=== PATIENT | male | born 1965 | race Caucasian/White ===

== ENCOUNTER 2018-08-25 14:24 | Emergency (ER) | payer OTHER ==
[~2018-08-25] VITALS: Ht 175.3 cm; Wt 81.6 kg
--- OUTSIDE RECORDS SUMMARY | 2018-08-25 14:27 | XMS REPORT | Clinical Summary ---
Author Author [facility] Address Unknown Phone Unavailable Care Team Providers Care Model Home Sales Greeter Name Role Phone Montes Magnus PCP Allergies No Known Allergies Medications End Date Status Medication Sig Dispensed Refills Start Date Active dronedarone (MULTAQ) 400 Take 400 mg 0 mg tablet by mouth 2 (two) times daily with breakfast and dinner. Active lisinopril Take 10 mg by 0 (PRINIVIL,ZESTRIL) 10 MG mouth 2 (two) tablet times daily. Active simvastatin (ZOCOR) 20 MG Take 20 mg by 0 tablet mouth nightly. Active rivaroxaban (XARELTO) 20 Take by mouth 0 mg Tab tablet daily. Active nevirapine (VIRAMUNE) 200 Take 200 mg 0 mg tablet by mouth 2 (two) times daily. Active stavudine (ZERIT) 40 MG Take 40 mg by 0 capsule mouth every 12 (twelve) hours. Active lamiVUDine (EPIVIR) 150 Take 150 mg 0 MG tablet by mouth 2 (two) times daily. Active acyclovir (ZOVIRAX) 400 Take 400 mg 0 MG tablet by mouth 2 (two) times daily. Active multivitamin per tablet Take 1 tablet 0 by mouth daily. Active loratadine (CLARITIN) 10 Take 10 mg by 0 mg tablet mouth daily. Active Problems Problem Noted Date PAF (paroxysmal atrial fibrillation) 01/21/2016 Typical atrial flutter 01/21/2016 Social History Date Tobacco Use Types Packs/Day Years Used Never Smoker Alcohol Use Drinks/Week oz/Week Comments No Sex Assigned at Date Recorded Not on file Industry Job Start Date Occupation Not on file Not on file Not on file Travel End Travel History Travel Start No recent travel history available. Last Filed Vital Signs Not on file Plan of Treatment Not on file Results Not on fileafter 08/24/2017 Insurance Payer Benefit Subscriber ID Type Phone Address Plan / Group [employer] - [employer]ET[employer] xxxxxxxxxx HMO/POS SELECT US ACCESS Advance Directives For more information, please contact: [facility] [address] [place] [address] Date Inactivated Comments Code Status Date Activated 01/22/2016 1:14 PM Full Code 01/21/2016 6:07 PM This code status was determined by: Patient 01/21/2016 6:07 PM Full Code 01/21/2016 5:35 AM This code status was determined by: Patient
--- OUTSIDE RECORDS SUMMARY | 2018-08-25 14:28 | XMS REPORT | CCD ---
Author Author Auto Generated Organization [facility] Address Unknown Phone Unavailable Care Team Providers Care Primer Assembler Name Role Phone Magnus Montes CP Allergies, Adverse Reactions, Alerts Substance Reaction Status NKDA Active
--- OUTSIDE RECORDS SUMMARY | 2018-08-25 14:28 | XMS REPORT | Summary of Care ---
Author Author [facility] Organization [facility] Address Unknown Phone Unavailable Encounter DEVAN Soto(JONNY) [id number] Date(s): 05/09/15 - 05/09/15 [facility] [address] [facility] [address] [place] [id number] [phone] Discharge Disposition: Home Attending Physician: Magnus Montes MD Referring Physician: Magnus Montes MD Vital Signs Most recent to 1 oldest [Reference Range]: Height 172.3 cm (05/09/15 10:48 AM) Most recent to 1 oldest [Reference Range]: Temperature Oral 97.6 DegF [96.4-99.1 DegF] (05/09/15 10:48 AM) Most recent to 1 oldest [Reference Range]: Blood Pressure 118/88 mmHg [90-140/60-90 mmHg] (05/09/15 10:48 AM) Most recent to 1 oldest [Reference Range]: Respiratory Rate 18 BRMIN [14-20 BRMIN] (05/09/15 10:48 AM) Most recent to 1 oldest [Reference Range]: Peripheral Pulse 80 bpm Rate [60-100 bpm] (05/09/15 10:48 AM) Most recent to 1 oldest [Reference Range]: Weight 80.597 kg (05/09/15 10:48 AM) Most recent to 1 oldest [Reference Range]: Body Mass Index 27.15 m2 (05/09/15 10:48 AM) Problem List Condition Effective Dates Status Health Status Informant HIV (human Active immunodeficiency virus infection)(Confirmed ) No problem, feared Active complaint unfounded(Confirmed) Allergies, Adverse Reactions, Alerts Substance Reaction Severity Status NKDA Active Medications No Known Medications Results No data available for this section Immunizations No data available for this section Procedures No data available for this section Social History Social History Type Response Substance Abuse Use: None. IV drug use: No. Drug use interferes with work/home: No. Ready to change: No. Household substance abuse concerns: No. Cessation Education Provided: No. Exercise Exercise duration: 30. Exercise frequency: 1-2 times/week. Exercise type: Running. Alcohol Current, Type Beer, Wine. Frequency: 3-5 times per week. Previous treatment: None. Alcohol use interferes with work or home: No. Drinks more than intended: No. Others hurt by drinking: No. Ready to change: No. Household alcohol concerns: No. Smoking Status Never smoker; Exposure to Tobacco Smoke None; Exposed at work; Lives with someone who smokes; Exposure to Tobacco Smoke Unable to obtain; Cigarette Smoking Last 365 Days No; Reg Smoking Cessation Counseling No Assessment and Plan No data available for this section
--- OUTSIDE RECORDS SUMMARY | 2018-08-25 14:28 | XMS REPORT | Summary of Care ---
Author Organization Unknown Address Unknown Phone Unavailable Encounter DEVAN Soto(JONNY) [id number] Date(s): 10/21/14 - 10/22/14 [facility] [address] [facility] [address] [phone] Vital Signs No data available for this section Problem List No data available for this section Allergies, Adverse Reactions, Alerts Substance Reaction Severity Status NKDA Active Medications Azithromycin 5 Day Dose Pack 250 mg oral tablet Take as directed, PO, Daily, TAKE 2 TABLETS ON DAY 1, THEN 1 TABLET DAILY, # 1 P ack, 0 Refill(s), Pharmacy: [facility] [id number] Special Instructions: TAKE 2 TABLETS ON DAY 1, THEN 1 TABLET DAILY Start Date: 10/21/14 Stop Date: 10/25/14 Status: Ordered ZyrTEC 10 mg oral tablet 10 mg=1 tab, PO, Daily, # 30 tab, 0 Refill(s), Pharmacy: [id number] Start Date: 10/21/14 Status: Ordered Results No data available for this section Immunizations No data available for this section Procedures No data available for this section Social History Social History Type Response Alcohol Current, Type Beer, Wine. Frequency: 3-5 [...]
--- OUTSIDE RECORDS SUMMARY | 2018-08-25 14:28 | XMS REPORT | Summary of Care ---
Author Organization Unknown Address Unknown Phone Unavailable Encounter Dates Location Diagnoses Discharge Providers Disposition 10/30/2013 [facility] Magnus Montes - [address] [facility] Magnus Montes 10/30/[address] Reason for Visit FOLLOW UP Problem List No data available for this section Allergies, Adverse Reactions, Alerts Status Substance Reaction Severity Active NKDA Medications No data available for this section Medications Administered During Your Visit No data available for this section Immunizations No data available for this section
--- OUTSIDE RECORDS SUMMARY | 2018-08-25 14:28 | XMS REPORT | Continuity of Care Document ---
Author Author [facility] Interface Address Unknown Phone Unavailable Problems Problem Status Onset Date Classification Date Reported Comments Source COLON CANCER SCREENING Active 02/07/2018 [facility] COLON SCREEN Active 01/19/2018 [facility] FU Active 03/18/2016 [facility] F/U Active 09/25/2015 [facility] FOLLOW UP Active 05/09/2015 [facility] BDDC - V76.51 COLORECTAL CANCER SCREENIN Active 03/10/2013 [facility] HIGH FEVER, BRONCHITIS 1 WEEK Active 02/28/2012 [facility] HIV (<span ID="[id number]</span>) Active Problem 03/02/2018 [facility] Hyperlipidemia Active Problem 03/02/2018 [facility] Hypertension Resolved Problem 03/02/2018 [facility] Irregular heartbeat Resolved Problem 03/02/2018 [facility] AUTOIMMUNE DISEASE NEC Active [facility] SCREEN MALIG NEOP-COLON Active [facility] Medications Medication Details Route Status Patient Instructions Ordering Provider Order Date Source GoLYTELY oral powder for reconstitution See Instructions, Take as directed by physician., # 1 ea, 0 Refill(s), Pharmacy: [facility] Active 02/06/2018 [facility] Aspirin 81 mg, PO, Daily, 0 Refill(s) Active 02/06/2018 [facility] multivitamin See Instructions, Daily, 0 Refill(s) Active 02/06/2018 [facility] cobicistat 150 MG / elvitegravir 150 MG / emtricitabine 200 MG / tenofovir alafenamide 10 MG Oral Tablet [Genvoya] 1 tab, PO, Daily, 0 Refill(s) Active 02/06/2018 [facility] cobicistat 150 MG / elvitegravir 150 MG / emtricitabine 200 MG / tenofovir alafenamide 10 MG Oral Tablet [Genvoya] 1 tab, PO, Daily, # 30 tab, 0 Refill(s) Inactive 02/06/2018 [facility] atorvastatin 20 mg, PO, Bedtime, 0 Refill(s) Active 02/06/2018 [facility] Simvastatin PO, Bedtime, 0 Refill(s) Active 03/18/2016 [facility] Multaq 400 mg, PO, BID, 0 Refill(s) Active 03/18/2016 [facility] lamiVUDine 150 mg oral tablet See Instructions, TAKE 1 TABLET TWICE A DAY, # 60 tab, 11 Refill(s), Pharmacy: [facility] [id number] Active 03/17/2016 [facility] lamiVUDine 150 mg oral tablet See Instructions, TAKE 1 TABLET TWICE A DAY, # 60 tab, 0 Refill(s), Pharmacy: [facility] [id number] No Longer Active 03/11/2016 [facility] lamiVUDine 150 mg oral tablet See Instructions, # 180 tab, Refill(s) 3, TAKE 1 TABLET TWICE A DAY, Pharmacy: [facility] No Longer Active 03/08/2016 [facility] lisinopril 10 mg oral tablet 10 mg=1 tab, PO, BID, # 60 tab, 5 Refill(s), Pharmacy: [facility] [id number] Active 09/25/2015 [facility] 24 HR Metoprolol Tartrate 25 MG Extended Release Tablet [Toprol] 25 mg=1 tab, PO, BID, # 60 tab, 5 Refill(s), Pharmacy: [facility] [id number] Active 09/25/2015 [facility] lisinopril 10 mg oral tablet 10 mg=1 tab, PO, BID, # 90 tab, 0 Refill(s) Active 02/17/2015 [facility] 24 HR Metoprolol Tartrate 25 MG Extended Release Tablet [Toprol] 25 mg=1 tab, PO, BID, 0 Refill(s) Active 02/17/2015 [facility] stavudine 40 mg oral capsule 40 mg=1 cap, PO, Q12H, # 180 cap, 0 Refill(s) Active 02/17/2015 [facility] acyclovir 400 mg oral tablet 400 mg=1 tab, PO, Daily, 0 Refill(s) Active 02/17/2015 [facility] Lamivudine 150 MG Oral Tablet [Epivir] 150 mg=1 tab, PO, BID, # 180 tab, 0 Refill(s) Active 02/17/2015 [facility] Nevirapine 200 MG Oral Tablet [Viramune] 200 mg=1 tab, PO, BID, # 180 tab, 0 Refill(s) Active 02/17/2015 [facility] Azithromycin 5 Day Dose Pack 250 mg oral tablet Take as directed, PO, Daily, TAKE 2 TABLETS ON DAY 1, THEN 1 TABLET DAILY, # 1 Pack, 0 Refill(s), Pharmacy: [facility] [id number] Instructions: TAKE 2 TABLETS ON DAY 1, THEN 1 TABLET DAILY Active 10/21/2014 [id number] cetirizine hydrochloride 10 MG Oral Tablet [Zyrtec] 10 mg=1 tab, PO, Daily, # 30 tab, 0 Refill(s), Pharmacy: [facility] [id number] Active 10/21/2014 [id number] montelukast 10 mg oral tablet 10 mg=1 tab, PO, QPM, # 90 tab, 4 Refill(s), Pharmacy: [email or web address] [id number] Active 07/23/2014 [facility] Azithromycin 250 MG Oral Tablet 250 mg=1 tab, PO, Daily, # 6 tab, 0 Refill(s), Pharmacy: [facility] [id number] Active 03/19/2014 [facility] Robitussin-AC oral syrup 5 ml, PO, Q6H, PRN, 1 btl, for cough and congestion, Substitution Allowed, Soft Stop, SYRP PO Active [facility] 02/28/2012 [facility] Bactrim DS oral tablet 1 tab, PO, BID, 28 tab, Substitution Allowed, Soft Stop, TAB PO Active [facility] 02/28/2012 [facility] azithromycin 250 mg oral tablet 250 mg, 1 tab, PO, Daily, 6 tab, Substitution Allowed PO Active [facility] 02/28/2012 [facility] Bactrim DS 1 tab, Route: PO, Drug Form: TAB, ONCE, STAT, Start date: 02/28/12 12:02:00, Stop date: 02/28/12 12:02:00 PO No Longer Active [facility] 02/28/2012 [facility] ceftriaxone 2 gm, Route: IVPB, Drug form: PDR/INJ, ONCE, Priority: STAT, Start date: 02/28/12 12:02:00, Stop date: 02/28/12 12:02:00 IVPB No Longer Active [facility] 02/28/2012 [facility] Allergies, Adverse Reactions, Alerts Substance Category Reaction Severity Reaction type Status Date Reported Comments Source Immunizations Immunization Date Given Site Status Last Updated Comments Source Results Order Name Results Value Reference Range Date Interpretation Comments Source Microbiology Culture: Blood 02/28/2012 [facility] URINALYSIS UA Glucose Negative (02/28/2012 11:31:00) Negative 02/28/2012 Normal [facility] URINALYSIS UA Spec Grav 1.020 <=1.030 02/28/2012 Normal [facility] URINALYSIS UA pH 6.0 5.0 - 8.0 02/28/2012 Normal [facility] URINALYSIS UA Protein Negative (02/28/2012 11:31:00) Negative 02/28/2012 Normal [facility] URINALYSIS UA Color Yellow *NA* (02/28/2012 11:31:00) Yellow 02/28/2012 NA [facility] URINALYSIS UA Turbidity Clear (02/28/2012 11:31:00) Clear 02/28/2012 Normal [facility] URINALYSIS UA Urobilinogen 0.2 EU/dL 0.1 - 1.0 02/28/2012 Normal [facility] URINALYSIS UA Nitrite Negative (02/28/2012 11:31:00) Negative 02/28/2012 Normal [facility] URINALYSIS UA Leuk Est Negative (02/28/2012 11:31:00) Negative 02/28/2012 Normal [facility] URINALYSIS UA Ketones Negative *NA* (02/28/2012 11:31:00) Negative 02/28/2012 NA [facility] URINALYSIS UA Blood Moderate *ABN* (02/28/2012 11:31:00) Negative 02/28/2012 ABN [facility] URINALYSIS UA Bili Negative *NA* (02/28/2012 11:31:00) Negative 02/28/2012 NA [facility] URINALYSIS UA RBC 0-2 /HPF (02/28/2012 11:31:00) 0 - 2 02/28/2012 Normal [facility] URINALYSIS UA Sq Epi None Seen (02/28/2012 11:31:00) Few 02/28/2012 Normal [facility] URINALYSIS Micro? Performed (02/28/2012 11:31:00) 02/28/2012 Normal [facility] URINALYSIS UA Mucus Few /LPF (02/28/2012 11:31:00) None Seen 02/28/2012 Normal [facility] URINALYSIS UA WBC 0-2 /HPF (02/28/2012 11:31:00) None Seen 02/28/2012 Normal [facility] URINALYSIS UA Bacteria Occasional /HPF (02/28/2012 11:31:00) None Seen 02/28/2012 Normal [facility] CHEMISTRY Lactic Acid Lvl 1.0 mMol/L 0.5 - 2.2 02/28/2012 Normal [facility] CHEMISTRY Calcium Lvl 8.5 mg/dL 8.5 - 10.5 02/28/2012 Normal [facility] CHEMISTRY Chloride Lvl 102 meq/L 95 - 109 02/28/2012 Normal [facility] CHEMISTRY CO2 28 meq/L 24 - 32 02/28/2012 Normal [facility] CHEMISTRY Potassium Lvl 4.2 meq/L 3.5 - 5.1 02/28/2012 Normal [facility] CHEMISTRY Sodium Lvl 139 meq/L 135 - 145 02/28/2012 Normal [facility] CHEMISTRY Creatinine Lvl 0.7 mg/dL 0.5 - 1.4 02/28/2012 Normal [facility] CHEMISTRY Glucose Lvl 108 mg/dL 70 - 99 02/28/2012 HI 1Interpretive Data: Adult reference range values reflect the clinical guidelines of the [place] [employer]. [facility] CHEMISTRY BUN 9 mg/dL 7 - 22 02/28/2012 Normal [facility] CHEMISTRY AGAP 13.2 meq/L 10.0 - 20.0 02/28/2012 Normal [facility] HEMATOLOGY MPV 7.7 fL 7.4 - 10.4 02/28/2012 Normal [facility] HEMATOLOGY Platelet 232 K/CMM 133 - 450 02/28/2012 Normal [facility] HEMATOLOGY RDW 12.8 % 11.5 - 14.5 02/28/2012 Normal [facility] HEMATOLOGY WBC 7.4 K/CMM 3.7 - 10.4 02/28/2012 Normal [facility] HEMATOLOGY MCV 96.7 fL 80.0 - 94.0 02/28/2012 [facility] HEMATOLOGY Hct 38.4 % 42.0 - 54.0 02/28/2012 [facility] HEMATOLOGY Hgb 13.3 g/dL 14.0 - 18.0 02/28/2012 [facility] HEMATOLOGY RBC 3.97 M/CMM 4.70 - 6.10 02/28/2012 [facility] HEMATOLOGY MCHC 34.6 g/dL 32.0 - 36.0 02/28/2012 Normal [facility] HEMATOLOGY MCH 33.5 pg 27.0 - 31.0 02/28/2012 [facility] HEMATOLOGY Lymphocytes 22.0 % 20.0 - 40.0 02/28/2012 Normal [facility] HEMATOLOGY Monocytes 11.0 % 2.0 - 12.0 02/28/2012 Normal [facility] HEMATOLOGY Eosinophils 4.0 % 0.0 - 4.0 02/28/2012 Normal [facility] HEMATOLOGY Atypical Lymphs 0.0 % <=0.0 02/28/2012 Normal [facility] HEMATOLOGY Anisocyte 1+ *ABN* (02/28/2012 10:38:00) None Seen 02/28/2012 ABN [facility] HEMATOLOGY Plt Morph Normal (02/28/2012 10:38:00) 02/28/2012 Normal [facility] HEMATOLOGY Microcyte 1+ *ABN* (02/28/2012 10:38:00) None Seen 02/28/2012 [facility] HEMATOLOGY Macrocyte 1+ *ABN* (02/28/2012 10:38:00) None Seen 02/28/2012 [facility] HEMATOLOGY Bands 1.0 % 0.0 - 11.0 02/28/2012 Normal [facility] HEMATOLOGY Spherocyte Rare *ABN* (02/28/2012 10:38:00) None Seen 02/28/2012 [facility] HEMATOLOGY Segs-Bands # 4.7 K/CMM 1.5 - 8.1 02/28/2012 Normal [facility] HEMATOLOGY Monocytes # 0.8 K/CMM 0.0 - 0.8 02/28/2012 Normal [facility] HEMATOLOGY Lymphocytes # 1.6 K/CMM 1.0 - 5.5 02/28/2012 Normal [facility] HEMATOLOGY Eosinophils # 0.3 K/CMM 0.0 - 0.5 02/28/2012 Normal [facility] HEMATOLOGY Segs 62.0 % 45.0 - 75.0 02/28/2012 Normal [facility] Microbiology Culture: Blood 02/28/2012 [facility] Vital Signs Vital Sign Value Date Comments Source Weight 78.182 02/06/2018 [facility] BMI Calculated 25.45 02/06/2018 [facility] Height 175.26 cm 02/06/2018 [facility] Heart Rate 84 02/06/2018 [facility] Respitory Rate 16 02/06/2018 [facility] Systolic (mm Hg) 118 02/06/2018 [facility] Diastolic (mm Hg) 79 02/06/2018 [facility] Weight 78.364 03/18/2016 [facility] Systolic (mm Hg) 117 03/18/2016 [facility] Diastolic (mm Hg) 83 03/18/2016 [facility] Temperature Oral (F) 97.8 F 03/18/2016 [facility] Respitory Rate 18 03/18/2016 [facility] Heart Rate 85 03/18/2016 [facility] Weight 81 09/25/2015 [facility] Respitory Rate 16 09/25/2015 [facility] Heart Rate 72 09/25/2015 [facility] Temperature Oral (F) 96.6 F 09/25/2015 [facility] Height 172.5 cm 09/25/2015 [facility] BMI Calculated 27.22 09/25/2015 [facility] Systolic (mm Hg) 139 09/25/2015 [facility] Diastolic (mm Hg) 101 09/25/2015 [facility] Weight 80.597 05/09/2015 [facility] BMI Calculated 27.15 05/09/2015 [facility] Temperature Oral (F) 97.6 F 05/09/2015 [facility] Respitory Rate 18 05/09/2015 [facility] Height 172.3 cm 05/09/2015 [facility] Heart Rate 80 05/09/2015 [facility] Systolic (mm Hg) 118 05/09/2015 [facility] Diastolic (mm Hg) 88 05/09/2015 [facility] Temperature Oral (F) 97.8 F 02/17/2015 [facility] Systolic (mm Hg) 134 02/17/2015 [facility] Diastolic (mm Hg) 95 02/17/2015 [facility] Heart Rate 97 02/17/2015 [facility] Height 175.26 cm 02/17/2015 [facility] Weight 80.455 02/17/2015 [facility] BMI Calculated 26.19 02/17/2015 [facility] Systolic (mm Hg) 152 07/23/2014 [facility] Respitory Rate 17 07/23/2014 [facility] Diastolic (mm Hg) 98 07/23/2014 [facility] Temperature Oral (F) 96.7 F 07/23/2014 [facility] Heart Rate 73 07/23/2014 [facility] Weight 85.682 07/23/2014 [facility] Height 177.8 cm 07/23/2014 [facility] BMI Calculated 27.1 07/23/2014 [facility] Respitory Rate 18 07/31/2013 [facility] Temperature Oral (F) 97.8 F 07/31/2013 [facility] Heart Rate 82 07/31/2013 [facility] Diastolic (mm Hg) 85 07/31/2013 [facility] Systolic (mm Hg) 129 07/31/2013 [facility] Weight 84.148 07/31/2013 [facility] Height 175.26 cm 07/31/2013 [facility] Weight 80.909 01/16/2013 [facility] Height 175.26 cm 01/16/2013 [facility] Systolic (mm Hg) 140 01/16/2013 [facility] Respitory Rate 18 01/16/2013 [facility] Diastolic (mm Hg) 84 01/16/2013 [facility] Heart Rate 79 01/16/2013 [facility] Temperature Oral (F) 97.7 F 01/16/2013 [facility] Temperature Oral (F) 97.7 F 04/27/2012 [facility] Respitory Rate 18 04/27/2012 [facility] Heart Rate 70 04/27/2012 [facility] Systolic (mm Hg) 152 04/27/2012 [facility] Diastolic (mm Hg) 98 04/27/2012 [facility] Height 175.26 cm 04/27/2012 [facility] Weight 82.727 04/27/2012 [facility] Diastolic (mm Hg) 94 03/28/2012 [facility] Heart Rate 80 03/28/2012 [facility] Temperature Oral (F) 98.2 F 03/28/2012 [facility] Respitory Rate 18 03/28/2012 [facility] Systolic (mm Hg) 136 03/28/2012 [facility] Weight 82.386 03/28/2012 [facility] Height 175.26 cm 03/28/2012 [facility] Weight 81.818 02/28/2012 [facility] Height 175.26 cm 02/28/2012 [facility] Encounters Location Location Details Encounter Type Encounter Number Reason For Visit Attending Provider ADM Date DC Date Status Source [facility] Emergency [id number] RAYO NGUYEN 02/28/2012 02/28/2012 Active [facility] [place] [id number] FOLLOW UP MAGNUS ELLINGTON 03/28/2012 Active [facility] [place] [id number] FOLLOW UP MAGNUS ELLINGTON 04/27/2012 Active [facility] Outpatient [id number] FOLLOW UP MAGNUS ELLINGTON 01/16/2013 Active [facility] ARAMIS [id number] ZEFERINODeandra GUSMAN 04/23/2013 04/23/2013 Active [facility] Outpatient [id number] FOLLOW UP MAGNUS ELLINGTON 07/31/2013 Active [facility] Outpatient [id number] Magnus Ellington 10/30/2013 10/31/2013 [facility] Outpatient [id number] Magnus Ellington 07/23/2014 07/24/2014 [facility] Phone Message [id number] 10/21/2014 10/23/2014 [id number] [facility] Outpatient [id number] Magnus Ellington 02/17/2015 02/18/2015 [facility] Outpatient [id number] Magnus Ellington 05/09/2015 05/10/2015 [facility] Outpatient [id number] Magnus Ellington 09/25/2015 09/26/2015 [facility] Outpatient [id number] Magnus Ellington 03/18/2016 03/19/2016 [facility] Outpatient [id number] Bethany Jaime 02/06/2018 02/07/2018 [facility] Outpatient [id number] Zeferino Gusman 02/27/2018 02/27/2018 [facility] [place] [id number] FOLLOW UP MAGNUS ELLINGTON Cancel [facility] Outpatient [id number] FOLLOW UP MAGN[facility] Cancel [facility] Procedures Procedure Code Date Perfomer Comments Source Catheter ablation for cardiac arrhythmia [id number] [facility]
--- OUTSIDE RECORDS SUMMARY | 2018-08-25 14:28 | XMS REPORT | CCD ---
Author Author Auto Generated Organization [facility] Address Unknown Phone Unavailable Care Team Providers Care Meringuer Name Role Phone Glenn Machado RP Allergies, Adverse Reactions, Alerts Substance Reaction Status NKDA Active
--- OUTSIDE RECORDS SUMMARY | 2018-08-25 14:28 | XMS REPORT | CCD ---
Author Author Auto Generated Organization [facility] Address Unknown Phone Unavailable Care Team Providers Care Egg Processor Name Role Phone Denys Wade CP Allergies, Adverse Reactions, Alerts Substance Reaction Status NKDA Active Medications Medication Instructions Start Date End Date Status Robitussin-AC oral 5 ml, PO, Q6H, PRN, 1 btl, for 02/28/2012 Ordered syrup cough and congestion, Substitution Allowed, Soft Stop, SYRP Bactrim DS oral 1 tab, PO, BID, 28 tab, 02/28/2012 03/13/2012 Ordered tablet Substitution Allowed, Soft Stop, TAB azithromycin 250 mg 250 mg, 1 tab, PO, Daily, 6 tab, 02/28/2012 03/04/2012 Ordered oral tablet Substitution Allowed Bactrim DS 1 tab, Route: PO, Drug Form: TAB, 02/28/2012 02/28/2012 Completed ONCE, STAT, Start date: 02/28/12 12:02:00, Stop date: 02/28/12 12:02:00 ceftriaxone 2 gm, Route: IVPB, Drug form: 02/28/2012 02/28/2012 Completed PDR/INJ, ONCE, Priority: STAT, Start date: 02/28/12 12:02:00, Stop date: 02/28/12 12:02:00 Vital Signs Most recent to oldest [Reference Range]: 1 Height 175.26 cm (02/28/2012 09:48:00) Weight 81.818 kg (02/28/2012 09:48:00) Results URINALYSIS Most recent to oldest [Reference Range]: 1 UA Turbidity [Clear] Clear (02/28/2012 11:31:00) UA Color [Yellow] Yellow *NA* (02/28/2012 11:31:00) UA pH [5.0-8.0] 6.0 (02/28/2012 11:31:00) UA Spec Grav [<=1.030] 1.020 (02/28/2012 11:31:00) UA Glucose [Negative] Negative (02/28/2012 11:31:00) UA Blood [Negative] Moderate *ABN* (02/28/2012 11:31:00) UA Ketones [Negative] Negative *NA* (02/28/2012 11:31:00) UA Protein [Negative] Negative (02/28/2012 11:31:00) UA Urobilinogen [0.1-1.0 EU/dL] 0.2 EU/dL (02/28/2012 11:31:00) UA Bili [Negative] Negative *NA* (02/28/2012 11:31:00) UA Leuk Est [Negative] Negative (02/28/2012 11:31:00) UA Nitrite [Negative] Negative (02/28/2012 11:31:00) UA WBC [None Seen /HPF] 0-2 /HPF (02/28/2012 11:31:00) UA RBC [0-2 /HPF] 0-2 /HPF (02/28/2012 11:31:00) UA Bacteria [None Seen /HPF] Occasional /HPF (02/28/2012 11:31:00) UA Sq Epi [Few] None Seen (02/28/2012 11:31:00) UA Mucus [None Seen /LPF] Few /LPF (02/28/2012 11:31:00) Micro? Performed (02/28/2012 11:31:00) CHEMISTRY Most recent to oldest [Reference Range]: 1 Sodium Lvl [135-145 mEq/L] 139 mEq/L (02/28/2012 10:38:00) Potassium Lvl [3.5-5.1 mEq/L] 4.2 mEq/L (02/28/2012 10:38:00) Chloride Lvl [95-109 mEq/L] 102 mEq/L (02/28/2012 10:38:00) CO2 [24-32 mEq/L] 28 mEq/L (02/28/2012 10:38:00) AGAP [10.0-20.0 mEq/L] 13.2 mEq/L (02/28/2012 10:38:00) Creatinine Lvl [0.5-1.4 mg/dL] 0.7 mg/dL (02/28/2012 10:38:00) BUN [7-22 mg/dL] 9 mg/dL (02/28/2012 10:38:00) Glucose Lvl [70-99 mg/dL] 108 mg/dL 1 *HI* (02/28/2012 10:38:00) Calcium Lvl [8.5-10.5 mg/dL] 8.5 mg/dL (02/28/2012 10:38:00) Lactic Acid Lvl [0.5-2.2 mMol/L] 1.0 mMol/L (02/28/2012 10:38:00) 1Interpretive Data: Adult reference range values reflect the clinical guidelines of the [place] [employer]. HEMATOLOGY Most recent to oldest [Reference Range]: 1 WBC [3.7-10.4 K/CMM] 7.4 K/CMM (02/28/2012 10:38:00) RBC [4.70-6.10 M/CMM] 3.97 M/CMM *LOW* (02/28/2012 10:38:00) Hgb [14.0-18.0 g/dL] 13.3 g/dL *LOW* (02/28/2012 10:38:00) Hct [42.0-54.0 %] 38.4 % *LOW* (02/28/2012 10:38:00) MCV [80.0-94.0 fL] 96.7 fL *HI* (02/28/2012 10:38:00) MCH [27.0-31.0 pg] 33.5 pg *HI* (02/28/2012 10:38:00) MCHC [32.0-36.0 g/dL] 34.6 g/dL (02/28/2012 10:38:00) RDW [11.5-14.5 %] 12.8 % (02/28/2012 10:38:00) Platelet [133-450 K/CMM] 232 K/CMM (02/28/2012 10:38:00) MPV [7.4-10.4 fL] 7.7 fL (02/28/2012 10:38:00) Segs [45.0-75.0 %] 62.0 % (02/28/2012 10:38:00) Bands [0.0-11.0 %] 1.0 % (02/28/2012 10:38:00) Lymphocytes [20.0-40.0 %] 22.0 % (02/28/2012 10:38:00) Atypical Lymphs [<=0.0 %] 0.0 % (02/28/2012 10:38:00) Monocytes [2.0-12.0 %] 11.0 % (02/28/2012 10:38:00) Eosinophils [0.0-4.0 %] 4.0 % (02/28/2012 10:38:00) Segs-Bands # [1.5-8.1 K/CMM] 4.7 K/CMM (02/28/2012 10:38:00) Lymphocytes # [1.0-5.5 K/CMM] 1.6 K/CMM (02/28/2012 10:38:00) Monocytes # [0.0-0.8 K/CMM] 0.8 K/CMM (02/28/2012 10:38:00) Eosinophils # [0.0-0.5 K/CMM] 0.3 K/CMM (02/28/2012 10:38:00) Anisocyte [None Seen] 1+ *ABN* (02/28/2012 10:38:00) Macrocyte [None Seen] 1+ *ABN* (02/28/2012 10:38:00) Microcyte [None Seen] 1+ *ABN* (02/28/2012 10:38:00) Spherocyte [None Seen] Rare *ABN* (02/28/2012 10:38:00) Plt Morph Normal (02/28/2012 10:38:00) Microbiology Reports PROCEDURE:Culture: Blood STATUS: In Progress BODY SITE: LAC COLLECTED DATE/TIME: 02/28/2012 12:35:00 SOURCE: Blood FREE TEXT SOURCE: set PRELIMINARY REPORTS Preliminary Report No Growth At 1 Day PROCEDURE:Culture: Blood STATUS: In Progress BODY SITE: Arm R COLLECTED DATE/TIME: 02/28/2012 10:38:00 SOURCE: Blood FREE TEXT SOURCE: set PRELIMINARY REPORTS Preliminary Report No Growth At 1 Day
--- OUTSIDE RECORDS SUMMARY | 2018-08-25 14:28 | XMS REPORT | Summary of Care ---
Author Organization Unknown Address Unknown Phone Unavailable Encounter HQ Charles(JONNY) [id number] Date(s): 02/17/15 - 02/17/15 [facility] [address] [place] [address]- U [phone] Discharge Disposition: Home Physician Attending: Magnus Montes MD Physician_Referring: Magnus Montes MD Vital Signs Most recent to 1 oldest [Reference Range]: Height 175.26 cm (02/17/15 2:38 PM) Temperature Oral 97.8 DegF [96.4-99.1 DegF] (02/17/15 2:39 PM) Blood Pressure 134/95 mmHg [90-140/60-90 mmHg] (02/17/15 2:39 PM) Peripheral Pulse 97 bpm Rate [60-100 bpm] (02/17/15 2:39 PM) Weight 80.455 kg (02/17/15 2:38 PM) Body Mass Index 26.19 m2 (02/17/15 2:38 PM) Problem List No data available for this section Allergies, Adverse Reactions, Alerts Substance Reaction Severity Status NKDA Active Medications acyclovir 400 mg oral tablet 400 mg=1 tab, PO, Daily, 0 Refill(s) Start Date: 02/17/15 Status: Ordered Epivir 150 mg oral tablet 150 mg=1 tab, PO, BID, # 180 tab, 0 Refill(s) Start Date: 02/17/15 Status: Ordered lisinopril 10 mg oral tablet 10 mg=1 tab, PO, BID, # 90 tab, 0 Refill(s) Start Date: 02/17/15 Status: Ordered stavudine 40 mg oral capsule 40 mg=1 cap, PO, Q12H, # 180 cap, 0 Refill(s) Start Date: 02/17/15 Status: Ordered Toprol-XL 25 mg oral tablet, extended release 25 mg=1 tab, PO, BID, 0 Refill(s) Start Date: 02/17/15 Status: Ordered Viramune 200 mg oral tablet 200 mg=1 tab, PO, BID, # 180 tab, 0 Refill(s) Start Date: 02/17/15 Status: Ordered Results No data available for [...]
--- OUTSIDE RECORDS SUMMARY | 2018-08-25 14:28 | XMS REPORT | Summary of Care ---
Author Author [facility] Organization [facility] Address Unknown Phone Unavailable Encounter HQ Charles(FIN) [id number] Date(s): 02/27/18 - 02/27/18 [facility] [address] [phone] Discharge Disposition: Home or Self Care Attending Physician: Glenn Machado MD Referring Physician: Glenn Machado MD Vital Signs No data available for this section Problem List Condition Effective Dates Status Health Status Informant HIV (human Active immunodeficiency virus infection)(Confirmed ) Hyperlipidemia(Confi Active rmed) Hypertension(Confirm Resolved ed) Irregular Resolved heartbeat(Confirmed) No problem, feared Active complaint unfounded(Confirmed) Allergies, Adverse Reactions, Alerts Substance Reaction Severity Status NKDA Active Medications No data available for this section Results No data available for this section Immunizations No data available for this section Procedures Procedure Date Related Diagnosis Body Site Status Catheter ablation for cardiac arrhythmia Completed Social History Social History Type Response Substance [...] Days No; Reg Smoking Cessation Counseling No entered on: 02/06/18 Assessment and Plan No data available for this section
--- OUTSIDE RECORDS SUMMARY | 2018-08-25 14:28 | XMS REPORT | Summary of Care ---
Author Author [facility] Organization [facility] Address Unknown Phone Unavailable Encounter DEVAN Soto(JONNY) [id number] Date(s): 02/06/18 - 02/06/18 [facility] [address] [place] [address]- [facility] [phone] Discharge Disposition: Home or Self Care Attending Physician: Bethany Jaime NP CORPORATE SAFETY COORDINATOR Referring Physician: Bethany Jaime NP CORPORATE SAFETY COORDINATOR Vital Signs Most recent to 1 oldest [Reference Range]: Height 175.26 cm (02/06/18 10:07 AM) Blood Pressure 118/79 mmHg [90-140/60-90 mmHg] (02/06/18 10:07 AM) Respiratory Rate 16 BRMIN [14-20 BRMIN] (02/06/18 10:07 AM) Peripheral Pulse 84 bpm Rate [60-100 bpm] (02/06/18 10:07 AM) Weight 78.182 kg (02/06/18 10:07 AM) Body Mass Index 25.45 m2 (02/06/18 10:07 AM) Problem List Condition Effective Dates Status Health Status Informant HIV (human Active immunodeficiency virus infection)(Confirmed ) Hyperlipidemia(Confi Active rmed) Hypertension(Confirm Resolved ed) Irregular Resolved heartbeat(Confirmed) No problem, feared Active complaint unfounded(Confirmed) Allergies, Adverse Reactions, Alerts Substance Reaction Severity Status NKDA Active Medications aspirin 81 mg, PO, Daily, 0 Refill(s) Start Date: 02/06/18 Status: Ordered atorvastatin 20 mg, PO, Bedtime, 0 Refill(s) Start Date: 02/06/18 Status: Ordered Genvoya 150 mg-150 mg-200 mg-10 mg oral tablet 1 tab, PO, Daily, # 30 tab, 0 Refill(s) Start Date: 02/06/18 Stop Date: 02/06/18 Status: Completed Genvoya 150 mg-150 mg-200 mg-10 mg oral tablet 1 tab, PO, Daily, 0 Refill(s) Start Date: 02/06/18 Status: Ordered GoLYTELY oral powder for reconstitution See Instructions, Take as directed by physician., # 1 ea, 0 Refill(s), Pharmacy: [facility] Start Date: 02/06/18 Status: Ordered multivitamin See Instructions, Daily, 0 Refill(s) Start Date: 02/06/18 Status: Ordered Results No data available for [...]
--- OUTSIDE RECORDS SUMMARY | 2018-08-25 14:28 | XMS REPORT | Summary of Care ---
Author Organization Unknown Address Unknown Phone Unavailable Encounter DEVAN Soto(JONNY) [id number] Date(s): 07/23/14 - 07/23/[address] Discharge Disposition: Home Physician Attending: Magnus Montes MD Physician_Referring: Magnus Montes MD Reason for Visit FOLLOW UP Vital Signs Most recent to 1 oldest [Reference Range]: Height 177.8 cm (07/23/14 11:26 AM) Temperature Oral 96.7 DegF [96.4-99.1 DegF] (07/23/14 11:26 AM) Systolic Blood 152 mmHg Pressure [90-140 *HI* mmHg] (07/23/14 11:26 AM) Diastolic Blood 98 mmHg Pressure [60-90 *HI* mmHg] (07/23/14 11:26 AM) Respiratory Rate 17 BRMIN [14-20 BRMIN] (07/23/14 11:26 AM) Peripheral Pulse 73 bpm Rate [60-100 bpm] (07/23/14 11:26 AM) Weight 85.682 kg (07/23/14 11:26 AM) Body Mass Index 27.1 m2 (07/23/14 11:26 AM) Problem List No data available for this section Allergies, Adverse Reactions, Alerts Substance Reaction Severity Status NKDA Active Medications azithromycin 250 mg oral tablet 250 mg=1 tab, PO, Daily, # 6 tab, 0 Refill(s), Pharmacy: [id number] Start Date: 03/19/14 Stop Date: 03/24/14 Status: Ordered montelukast 10 mg oral tablet 10 mg=1 tab, PO, QPM, # 90 tab, 4 Refill(s), Pharmacy: [facility] [id number] Start Date: 07/23/14 Status: Ordered Medications Administered During Your Visit No data available for this section Immunizations No data available for this section Social History Social History Type Response Alcohol Use: Current, Type: Beer, Type: Wine, Frequency: 3-5 times per week, Previous treatment: None, Has alcohol use interfered with work or home life? No, Do you ever drink more than intended? No, Has anyone been hurt or at risk by your drinking? No, Ready to change: No, Concerns about alcohol use in household: No Smoking Status Never smoker, Exposure to Tobacco Smoke None, Exposed at work, Lives with someone who smokes, Exposure to Tobacco Smoke Unable to obtain, Cigarette Smoking Last 365 Days No, Reg Smoking Cessation Counseling No
--- OUTSIDE RECORDS SUMMARY | 2018-08-25 14:28 | XMS REPORT | CCD ---
Author Author Auto Generated Organization [facility] Address Unknown Phone Unavailable Care Team Providers Care Stone Derrickman And Rigger Name Role Phone Magnus Montes RP Allergies, Adverse Reactions, Alerts Substance Reaction Status NKDA Active Vital Signs Most recent to oldest [Reference Range]: 1 Height 175.26 cm (07/31/2013 09:30:00) Temperature Oral [96.4-99.1 DegF] 97.8 DegF (07/31/2013 09:30:00) Systolic Blood Pressure [90-140 mmHg] 129 mmHg (07/31/2013 09:30:00) Diastolic Blood Pressure [60-90 mmHg] 85 mmHg (07/31/2013 09:30:00) Respiratory Rate [14-20 BRMIN] 18 BRMIN (07/31/2013 09:30:00) Peripheral Pulse Rate [60-100 bpm] 82 bpm (07/31/2013 09:30:00) Weight 84.148 kg (07/31/2013 09:30:00)
--- OUTSIDE RECORDS SUMMARY | 2018-08-25 14:28 | XMS REPORT | CCD ---
Author Author Auto Generated Organization [facility] Address Unknown Phone Unavailable Care Team Providers Care Cigar Making Machine Supervisor Name Role Phone Magnus Montes RP Allergies, Adverse Reactions, Alerts Substance Reaction Status NKDA Active Vital Signs Most recent to oldest [Reference Range]: 1 Height 175.26 cm (04/27/2012 16:47:00) Temperature Oral [96.4-99.1 DegF] 97.7 DegF (04/27/2012 16:47:00) Systolic Blood Pressure [90-140 mmHg] 152 mmHg *HI* (04/27/2012 16:47:00) Diastolic Blood Pressure [60-90 mmHg] 98 mmHg *HI* (04/27/2012 16:47:00) Respiratory Rate [14-20 BRMIN] 18 BRMIN (04/27/2012 16:47:00) Peripheral Pulse Rate [60-100 bpm] 70 bpm (04/27/2012 16:47:00) Weight 82.727 kg (04/27/2012 16:47:00)
--- OUTSIDE RECORDS SUMMARY | 2018-08-25 14:28 | XMS REPORT | Summary of Care ---
Author Author [facility] Organization [facility] Address Unknown Phone Unavailable Encounter DEVAN Soto(JONNY) [id number] Date(s): 03/18/16 - 03/18/16 [facility] [address] [place] [address]- [facility] [phone] Discharge Disposition: Home or Self Care Attending Physician: Magnus Montes MD Referring Physician: Magnus Montes MD Vital Signs Most recent to 1 oldest [Reference Range]: Temperature Oral 97.8 DegF [96.4-99.1 DegF] (03/18/16 2:57 PM) Blood Pressure 117/83 mmHg [90-140/60-90 mmHg] (03/18/16 2:57 PM) Respiratory Rate 18 BRMIN [14-20 BRMIN] (03/18/16 2:57 PM) Peripheral Pulse 85 bpm Rate [60-100 bpm] (03/18/16 2:57 PM) Weight 78.364 kg (03/18/16 2:57 PM) Problem List Condition Effective Dates Status Health Status Informant HIV (human Active immunodeficiency virus infection)(Confirmed ) Hyperlipidemia(Confi Active rmed) Hypertension(Confirm Resolved ed) Irregular Resolved heartbeat(Confirmed) No problem, feared Active complaint unfounded(Confirmed) Allergies, Adverse Reactions, Alerts Substance Reaction Severity Status NKDA Active Medications lamiVUDine 150 mg oral tablet See Instructions, # 180 tab, Refill(s) 3, TAKE 1 TABLET TWICE A DAY, Pharmacy: [facility] Start Date: 03/08/16 Stop Date: 03/11/16 Status: Completed lamiVUDine 150 mg oral tablet See Instructions, TAKE 1 TABLET TWICE A DAY, # 60 tab, 0 Refill(s), Pharmacy: [id number] Start Date: 03/11/16 Stop Date: 03/17/16 Status: Completed lamiVUDine 150 mg oral tablet See Instructions, TAKE 1 TABLET TWICE A DAY, # 60 tab, 11 Refill(s), Pharmacy: [id number] Start Date: 03/17/16 Status: Ordered Multaq 400 mg, PO, BID, 0 Refill(s) Start Date: 03/18/16 Status: Ordered simvastatin PO, Bedtime, 0 Refill(s) Start Date: 03/18/16 Status: Ordered Results No data available for this section Immunizations No data available for this section Procedures Procedure Date Related Diagnosis Body Site Catheter ablation for cardiac arrhythmia Social History Social History Type Response Substance [...]
--- OUTSIDE RECORDS SUMMARY | 2018-08-25 14:28 | XMS REPORT | Summary of Care ---
Author Author [facility] Address [address] [place] [address] Phone Unavailable Care Team Providers Care Car Tracer Name Role Phone Arnold Lazaro N.P. Unavailable Unavailable CHRYSTAL WATT M.D. Unavailable Unavailable Chrystal Watt MD Unavailable Unavailable Unavailable Unavailable Functional Status Name Dates Details Functional status health issues are not documented Status: Name Dates Details Cognitive status health issues are not documented Status: Problems Name Dates Details Possible exposure to STD (V01.6, Z20.2) Status: Active Acquired immune deficiency syndrome (AIDS) (042, B20) Status: Active Essential (primary) hypertension (401.9, I10) Status: Active High blood cholesterol (272.0, E78.00) Status: Active Skin rash (782.1, R21) Status: Active Herpes (054.9, B00.9) Status: Active Colon cancer screening (V76.51, Z12.11) Status: Active Hepatitis A immune (V49.89, Z78.9) Status: Active Hepatitis B immune (V49.89, Z78.9) Status: Active Medications Name Dates Details Multi-Vitamin TABS Active Lisinopril 10 MG Oral Tablet Take 1 tablet twice a day * Quantity: 180 Refills: 3 Arnold Lazaro N.P. * Start : 28-Oct-2017 Active Genvoya [id number] MG Oral Tablet TAKE 1 TABLET DAILY * Quantity: 90 Refills: 2 CHRYSTAL WATT M.D. * Start : 01-Jun-2017 Active Triamcinolone Acetonide 0.1 % External Cream APPLY 2-3 TIMES DAILY TO AFFECTED AREA(S). * Quantity: 1 Refills: 3 Arnold Lazaro N.P. * Start : 10-Oct-2017 Active 15 GM Tube Acyclovir 400 MG Oral Tablet TAKE 1 TABLET 3 TIMES DAILY * Quantity: 21 Refills: 2 CHRYSTAL WATT M.D. * Start : 17-Aug-2017 Active Allergies and Adverse Reactions Name Dates Details No Known Drug Allergies (Allergy) Status: Active Past Medical History Name Dates Details History of acute bronchitis (V12.69, Z87.09) Status: Resolved History of Acute upper respiratory infection (465.9, J06.9) Status: Resolved History of atrial fibrillation (V12.59, Z86.79) Status: Resolved History of pneumonia (V12.61, Z87.01) Status: Resolved Procedures Procedure Dates Details [[facility], [facility]] HEPATITIS A AB, TOTAL Date: 10-Oct-2017 History of Ankle Surgery Completed History of catheter ablation Completed History of nasal septoplasty Completed Immunization Name Dates Details Immunizations not documented Family History Name Dates Details Family history of hypertension (V17.49, Z82.49) Status: Active Family history of malignant neoplasm of breast (V16.3, Z80.3) Status: Active Name Dates Details Family history of colon cancer (V16.0, Z80.0) Status: Active Social History Name Dates Details - Status: Name Dates Details Never smoker Vital Signs Date Test Result Details No Known Vitals to report Results Date Description Value Details Results not documented Plan of Care Name Dates Details Planned Observations Planned Goals not documented Planned Encounters Appointment; CHRYSTAL WATT M.D. On: 13-Dec-2017 7:40 Appointment; YUSUF PATEL M.D. On: 06-Jan-2018 8:30 Appointment; Arnold Lazaro NP On: 28-Jan-2018 9:40 Instructions Name Dates Details Instructions not documented Encounters Appointment; Magnus Montes M.D. Encounter Diagnosis: Problem not documented On: 18-Mar-2016 15:15 Appointment; CHRYSTAL WATT M.D. Encounter Diagnosis: Problem not documented On: 14-Sep-2016 8:00 Appointment; CHRYSTAL WATT M.D. Encounter Diagnosis: Problem not documented On: 17-May-2017 8:40 Appointment; Arnold Lazaro NP Encounter Diagnosis: Problem not documented On: 10-Oct-2017 13:15 Appointment; CHRYSTAL WATT M.D. Encounter Diagnosis: Problem not documented On: 15-Nov-2017 7:40 Appointment; CHARLENE GRACE M.D. Encounter Diagnosis: Problem not documented On: 17-Nov-2017 13:00 Appointment; CHARLENE GRACE M.D. Encounter Diagnosis: Problem not documented On: 22-Nov-2017 15:00
--- OUTSIDE RECORDS SUMMARY | 2018-08-25 14:28 | XMS REPORT | CCD ---
Author Author Auto Generated Organization [facility] Address Unknown Phone Unavailable Care Team Providers Care Hot Dipper Name Role Phone Magnus Montes RP Allergies, Adverse Reactions, Alerts Substance Reaction Status NKDA Active Vital Signs Most recent to oldest [Reference Range]: 1 Height 175.26 cm (01/16/2013 15:38:00) Temperature Oral [96.4-99.1 DegF] 97.7 DegF (01/16/2013 15:38:00) Systolic Blood Pressure [90-140 mmHg] 140 mmHg (01/16/2013 15:38:00) Diastolic Blood Pressure [60-90 mmHg] 84 mmHg (01/16/2013 15:38:00) Respiratory Rate [14-20 BRMIN] 18 BRMIN (01/16/2013 15:38:00) Peripheral Pulse Rate [60-100 bpm] 79 bpm (01/16/2013 15:38:00) Weight 80.909 kg (01/16/2013 15:38:00)
--- OUTSIDE RECORDS SUMMARY | 2018-08-25 14:28 | XMS REPORT | CCD ---
Author Author Auto Generated Organization [facility] Address Unknown Phone Unavailable Care Team Providers Care Modeling Director Name Role Phone Magnus Montes RP Allergies, Adverse Reactions, Alerts Substance Reaction Status NKDA Active Vital Signs Most recent to oldest [Reference Range]: 1 Height 175.26 cm (03/28/2012 16:29:00) Temperature Oral [96.4-99.1 DegF] 98.2 DegF (03/28/2012 16:29:00) Systolic Blood Pressure [90-140 mmHg] 136 mmHg (03/28/2012 16:29:00) Diastolic Blood Pressure [60-90 mmHg] 94 mmHg *HI* (03/28/2012 16:29:00) Respiratory Rate [14-20 BRMIN] 18 BRMIN (03/28/2012 16:29:00) Peripheral Pulse Rate [60-100 bpm] 80 bpm (03/28/2012 16:29:00) Weight 82.386 kg (03/28/2012 16:29:00)
--- OUTSIDE RECORDS SUMMARY | 2018-08-25 14:28 | XMS REPORT | Summary of Care ---
Author Author [facility] Organization [facility] Address Unknown Phone Unavailable Encounter DEVAN Soto(JONNY) [id number] Date(s): 09/25/15 - 09/25/15 [facility] [address] [facility] [facility] [address] [place] [address]- U [phone] Discharge Disposition: Home Attending Physician: Magnus Montes MD Referring Physician: Magnus Montes MD Vital Signs Most recent to 1 oldest [Reference Range]: Height 172.5 cm (09/25/15 11:39 AM) Temperature Oral 96.6 DegF [96.4-99.1 DegF] (09/25/15 11:39 AM) Blood Pressure 139/101 mmHg [90-140/60-90 mmHg] (09/25/15 11:39 AM) Respiratory Rate 16 BRMIN [14-20 BRMIN] (09/25/15 11:39 AM) Peripheral Pulse 72 bpm Rate [60-100 bpm] (09/25/15 11:39 AM) Weight 81 kg (09/25/15 11:39 AM) Body Mass Index 27.22 m2 (09/25/15 11:39 AM) Problem List Condition Effective Dates Status Health Status Informant HIV (human Active immunodeficiency virus infection)(Confirmed ) No problem, feared Active complaint unfounded(Confirmed) Allergies, Adverse Reactions, Alerts Substance Reaction Severity Status NKDA Active Medications lisinopril 10 mg oral tablet 10 mg=1 tab, PO, BID, # 60 tab, 5 Refill(s), Pharmacy: [id number] 7 Start Date: 09/25/15 Stop Date: 03/23/16 Status: Ordered Toprol-XL 25 mg oral tablet, extended release 25 mg=1 tab, PO, BID, # 60 tab, 5 Refill(s), Pharmacy: [id number] Start Date: 09/25/15 Stop Date: 03/23/16 Status: Ordered Results No data available for [...] alcohol concerns: No. Smoking Status Never smoker; Type: Cigarettes; Exposure to Tobacco Smoke None; Cigarette Smoking Last 365 Days No; Reg Smoking Cessation Counseling No Assessment and Plan No data available for this section
== END 2018-08-25 16:00 | disposition home or self-care (01) ==
LOC: FSED 14:24
DX: R50.9 Fever, unspecified (principal); R05 Cough; J02.9 Acute pharyngitis, unspecified
CPT/HCPCS: 87400; 99283

== ENCOUNTER 2019-06-08 16:22 | Emergency (ER) | payer BC, OTHER ==
[~2019-06-08] VITALS: Ht 175.3 cm; Wt 78.1 kg
--- OUTSIDE RECORDS SUMMARY | 2019-06-08 16:25 | XMS REPORT ---
Author Author [facility] Address Unknown Phone Unavailable Care Team Providers Care Non Profit Director Name Role Phone Unavailable Unavailable Problems This patient has no known problems. Allergies, Adverse Reactions, Alerts This patient has no known allergies or adverse reactions. Medications This patient has no known medications. Encounters Start Date/Time End Date/Time Encounter Type Admission Type Attending Clinicians Care Facility Care Department Encounter ID 2019-05-22 15:16:00 2019-05-22 15:16:00 Outpatient [facility] [id number] 2019-05-22 13:29:00 2019-05-22 13:29:00 Outpatient [facility] [id number] 2019-05-18 16:13:00 2019-05-18 16:13:00 Emergency [facility] [id number]
[2019-06-08] MEDS ORDERED: ATORVASTATIN CA20 MG PO (17:09)
[2019-06-08] MEDS ORDERED: LISINOPRIL10 MG PO (17:09)
[2019-06-08 17:48] VITALS: BP 144/99
== END 2019-06-08 17:40 | disposition home or self-care (01) ==
LOC: FSED 16:22
DX: A60.1 Herpesviral infection of perianal skin and rectum (principal); I10 Essential (primary) hypertension; E78.5 Hyperlipidemia, unspecified
CPT/HCPCS: 99282